=== PATIENT | male | born 1980 | race Caucasian/White ===

== ENCOUNTER 2023-11-27 14:09 | Emergency (ER) | payer OTHER ==
[2023-11-27] MEDS: Bacitracin Oint 1 GM U/D Packet TOP ONE (14:30)
== END 2023-11-27 14:42 | disposition home or self-care (01) ==
LOC: LB.ED 14:09
DX: S60.352A Superficial foreign body of left thumb, initial encounter (principal); W45.8XXA Other foreign body or object entering through skin, initial encounter
CPT/HCPCS: 99283